=== PATIENT | male | born 1955 | race Caucasian/White ===

== ENCOUNTER 2019-04-24 08:15 | Emergency (ER) | payer OTHER, MEDICAID, SELFPAY ==
[2019-04-24 08:20] VITALS: BP 155/94; PULSE 92; RESP 14; TEMP 36.2; O2SAT 100; BMI 23.6
--- NOTE | 2019-04-24 08:23 | DI.RAD.S_ITS ---
PROCEDURE: XR CHEST 1V INDICATIONS: chest pain TECHNIQUE: One view of the chest was acquired. COMPARISON: [facility], , CHEST 1 VIEW, 08/31/2015, 0:15. FINDINGS: Surgical changes and devices: There are multiple overlying wires. Lungs and pleura: Visualized lungs are clear. No pleural effusions or pneumothorax. Mediastinum: Mediastinal contours appear normal. Heart size is normal. Bones and chest wall: No suspicious bony lesions. Overlying soft tissues appear unremarkable. IMPRESSION: 1. No acute cardiopulmonary disease. Dictated by: Jagjit Agrawal M.D. on 04/24/2019 at 7:52 Approved by: Jagjit Agrawal M.D. on 04/24/2019 at 7:54
--- NOTE | 2019-04-24 08:31 | PC.NURSE ---
pt c/o left chest pain started yesterday, having difficutly moving due to pain, sob of breath. per pt's spouse pt has had a few episodes where the pain is so sudden he grabs his chest and almost drops to his knees.
[2019-04-24 08:38] LABS: Add Manual Diff / Slide Review NO; Basophils Absolute Auto 0 /uL (0-100); Basophils Percent Auto 0.5 % (0-2); Eosinophils Absolute Auto 300 /uL (0-450); Eosinophils Percent Auto 4.4 % (2-4); Hematocrit 37.6 % (41-53); Hemoglobin 12.6 g/dL (13.5-17.5); Lymphocytes Absolute Auto 1700 /uL (1100-4500); Lymphocytes Percent Auto 28.3 % (25-40); Mean Corpuscular HGB Conc 33.5 % (30-36); Mean Corpuscular Hemoglobin 27.3 PG (26-34); Mean Corpuscular Volume 81.5 fL (80-100); Monocytes Absolute Auto 400 /uL (0-900); Monocytes Percent Auto 7.2 % (3-14); Neutrophils Absolute Auto 3600 /uL (1500-7000); Neutrophils Percent Auto 59.6 % (50-75); Platelet Count 243 X10^3/uL (150-400); Red Blood Cell Count 4.61 X10^6/uL (4.5-5.9)
[2019-04-24 08:43] LABS: PTT Partial Thromboplastin Tim 29 SECONDS (26.4-36.2)
[2019-04-24 08:45] LABS: Alanine Aminotransferase 16 IU/L (<50); Albumin 4.1 g/dL (3.5-5.0); Albumin Globulin Ratio 1.5 (1.0-2.8); Alkaline Phosphatase 89 U/L (38-126); Aspartate Aminotransferase 25 IU/L (17-59); Bilirubin Total 0.4 mg/dL (0.2-1.3); Blood Urea Nitrogen 20 mg/dL (9-20); Calcium 9.1 mg/dL (8.4-10.2); Carbon Dioxide 28 mmol/L (22-32); Chloride 103 mmol/L (98-107); Creatine Kinase 80 U/L (55-170); Estimated Glomerular Filt Rate > 60.0 mL/min (>60); Globulin 2.7 g/dL (1.7-4.1); Glucose 96 mg/dL (80-110); HEMOLYSIS < 15 (0-50); Lipase 30 U/L (23-300); Sodium 140 mmol/L (137-145); Total Protein 6.8 g/dL (6.3-8.2)
[2019-04-24 08:57] LABS: Troponin I < 0.012 ng/mL (0.01-0.034)
--- NOTE | 2019-04-24 09:18 | DI.CT.S_ITS ---
PROCEDURE: CT ANGIO CHEST PE PROTOCOL INDICATIONS: chest pain, shortness of breath, smoker TECHNIQUE: After the administration of intravenous contrast, 2 mm thick sections acquired from the pulmonary apices to the posterior costophrenic angles. 3-dimensional maximum intensity projection (MIP) coronal and sagittal reformats were then acquired through the thorax. For radiation dose reduction, the following was used: automated exposure control, adjustment of mA and/or kV according to patient size. COMPARISON: [facility], CR, XR CHEST 1V, 04/24/2019, 8:41. FINDINGS: Image quality: Excellent. Pulmonary arteries: Pulmonary arteries are normal in size, and demonstrate no intraluminal filling defects to suggest central pulmonary embolism. Lungs and pleura: There are clustered small indistinct nodular opacities within the lower lobes, left greater than right. There is associated mild bronchial wall thickening and areas of mucous plugging. Within the medial right upper and middle lobes, and there is also mild bronchial wall thickening with linear areas of scarring likely related to prior infection. There are mild paraseptal emphysematous changes. Findings are compatible with an endobronchial secretion of infection or inflammation. No pleural effusions or pneumothorax. Mediastinum: Heart size is normal, without pericardial effusion. There is a prominent left infrahilar lymph node measuring up to approximately 1.3 cm in short axis. No mediastinal lymphadenopathy by size criteria. Thoracic aorta is normal in caliber and enhancement. Esophagus is normal in caliber, without hiatal hernia. Bones and chest wall: No suspicious bony lesions. Ribs and thoracic spine appear intact throughout. Thyroid gland demonstrates no discrete nodules. No axillary or supraclavicular adenopathy. Abdomen: Visualized upper abdomen demonstrates mild periportal edema. IMPRESSION: 1. No evidence of pulmonary embolism. 2. Bilateral small clustered indistinct nodules with associated mild mucous spleen and bronchial wall thickening. The constellation of findings are consistent with endobronchial distribution of an atypical infection or sequelae of aspiration. 3. Enlarged left infrahilar lymph node. Although the findings may be reactive, given the localized enlargement and history of smoking, a neoplasm cannot be excluded. Recommend a short-term followup CT in 3 months following appropriate therapy to demonstrate resolution if clinically indicated. 4. Mild paraseptal emphysematous changes. Dictated by: Jagjit Agrawal M.D. on 04/24/2019 at 8:57 Approved by: Jagjit Agrawal M.D. on 04/24/2019 at 9:06
--- NOTE | 2019-04-24 09:23 | ED.CHESTPAIN ---
HPI - Chest Pain General Chief Complaint: Chest Pain Stated Complaint: chest pain Time Seen by Provider: 04/24/19 08:43 Source: patient Mode of arrival: Ambulatory Limitations: no limitations History of Present Illness HPI narrative: Patient comes emergency department complaining of chest pain. he states he has been having episodes of the same kind of chest pain on and off for about the last year. Patient denies any nausea vomiting. He states that when the pain comes on, he feels short of breath. He does smoke cigarettes and has had a cough for the last few months, which has been productive of a mild amount of yellow sputum. Patient denies any diaphoresis. He states he was admitted to [facility] some months ago for similar symptoms, at which time he had a cardiac rule out and a stress test. He states the stress test was negative. patient does not see a intelligence clerk. He denies any history of any sort of heart problems and does not have any specific lung diagnoses. He states that all 3 of his brothers have had various types of cancer, including leukemia and some sort of bone cancer. Patient states he has never had cancer. He denies any weight loss. No other complaints at this time. He states that he does not feel too bad laying in bed. He does note that the pain feels worse when he coughs. Related Data Previous Rx's Medication Instructions Recorded azithromycin [Zithromax Z-Rojas] 250 mg PO DAILY 5 Days tab 04/24/19 Allergies Allergy/AdvReac Type Severity Reaction Status Date / Time Penicillins [PENICILLINS] Allergy Mild rash Verified 04/24/19 08:20 Review of Systems Constitutional Constitutional: Denies chills, Denies fatigue, Denies fever(s), Denies frequent falls, Denies lethargy and Denies weakness Eyes Eyes: Denies change in vision, Denies eye discharge, Denies irritation and Denies loss of vision ENT Ears, Nose, Mouth, and Throat: Denies change in voice, Denies dizziness, Denies neck pain, Denies sore throat and Denies throat swelling Cardiovascular Cardiovascular: Reports chest pain, Denies irregular heart rhythm, Denies lightheadedness, Denies palpitations, Reports dyspnea, Denies dyspnea on exertion and Denies orthopnea Respiratory Respiratory: Denies cough, Reports dyspnea, Denies dyspnea on exertion and Denies wheezing Gastrointestinal Gastrointestinal: Denies abdominal pain, Denies change in bowel habits, Denies diarrhea, Denies nausea and Denies vomiting Genitourinary Genitourinary: Denies hematuria, Denies flank pain, Denies urinary incontinence and Denies urinary urgency Musculoskeletal Musculoskeletal: Denies back pain, Denies muscle weakness, Denies neck pain, Denies numbness and Denies tingling Integumentary/Breasts Skin/Breast: Denies pruritus, Denies erythema, Denies rash and Denies wounds Neurologic Neurologic: Denies behavioral changes, Denies confusion, Denies dizziness, Denies frequent falls, Denies loss of vision, Denies numbness, Denies tingling and Denies weakness Psychiatric Psychiatric: Denies anxiety, Denies behavioral changes, Denies confusion, Denies depression, Denies homicidal ideation and Denies suicidal ideation Endocrine Endocrine: Denies fatigue, Denies flushing and Denies palpitations Hematologic/Lymphatic Hematologic/Lymphatic: Denies easy bruising Allergic/Immunologic Allergic/Immunologic: Denies urticaria, Denies throat swelling and Denies wheezing Patient History Medical History Healthy adult (Acute) Social History Smoking Status: Current every day smoker Smoking Status: Current every day smoker Exam Initial Vital Signs Initial Vital Signs: Vital Signs Temperature 97.1 F L 04/24/19 08:20 Pulse Rate 92 H 04/24/19 08:20 Respiratory Rate 14 04/24/19 08:20 Blood Pressure 155/94 H 04/24/19 08:20 Pulse Oximetry 100 04/24/19 08:20 Const General: cooperative and well developed Nutritional Appearance: well nourished Orientation: alert, awake, oriented x3 and not confused [facility] Head: normocephalic and atraumatic Ears: external ears normal Nose: external nose normal and No nasal discharge Face and sinus: face symmetric and No dry mucous membranes Mouth: oral mucosae normal and moist mucous membranes Teeth and gingiva: dentition normal Eyes General: appearance normal, both eyes and all related structures Eyelids: eyelids normal Conjunctivae: conjunctivae normal Sclera: sclerae normal Pupils: PERRL EOM: EOM intact bilaterally Neck Neck: normal visual inspection, trachea midline, No lymphadenopathy, No midline deformity and No JVD Lymphatic: No lymphedema Chest Chest: normal inspection of the chest Resp Effort & Inspection: normal respiratory effort, able to speak in complete sentences, no respiratory distress and no use of accessory muscles Auscultation: clear to auscultation bilaterally, no rales, no rhonchi and no wheezes Cardio Rate: regular rate Rhythm: regular rhythm Heart Sounds: no click, no gallops, no murmurs and no rubs Pulses: normal peripheral pulses GI Inspection: non-distended Palpation: soft, no hepatosplenomegaly, No guarding, No pulsatile mass and No tender Back/Spine/Pelvis Back: No CVA tenderness Cervical Spine: cervical ROM normal and No pain with cervical ROM Thoracic/Lumbar Spine: thoracic and lumbar spine normal to inspection Skin General: no rashes or lesions noted, No jaundice and No petechiae Neuro General: alert, oriented x3, gait normal and no focal motor deficits Speech: speech normal Extrem General: full ROM, no clubbing, cyanosis or edema, no pedal edema and no calf tenderness Psych Appearance: well kempt Mental Status: mental status grossly normal Attitude: cooperative Thought Content: normal and suicidality Judgment: judgment good Course Course Course Narrative: Patient was worked up with labs, EKG, chest x-ray, and CT of the chest. He was given IV fluids and Toradol. The workup was unremarkable for emergent findings. I did discuss with the patient that at this time, there is no evidence of an emergent condition causing his symptoms. He has been started on Zithromax for probable bronchitis. Orders Ordered: Discontinued Medications Sodium Chloride (Normal Saline 0.9%) 1,000 mls @ 1,000 mls/hr IV BOLUS ONE Stop: 04/24/19 10:17 Last Admin: 04/24/19 10:00 Dose: 1,000 mls/hr Documented by: NIKITA Ketorolac Tromethamine (Toradol) 30 mg IV NOW ONE Stop: 04/24/19 09:30 Last Admin: 04/24/19 10:01 Dose: 30 mg Documented by: NIKITA Lorazepam (Ativan) 0.5 mg IV NOW ONE Stop: 04/24/19 09:30 Last Admin: 04/24/19 10:03 Dose: 0.5 mg Documented by: NIKITA Vital Signs Vital signs: Vital Signs - 8 hr 04/24/19 08:20 Temperature 97.1 F L Pulse Rate 92 H Respiratory Rate 14 Blood Pressure 155/94 H Pulse Oximetry 100 MDM - Chest Pain Medical Records Data Attestation: I reviewed the patient's medical records. Lab Data Attestation: I reviewed the patient's lab results. Result diagrams: 04/24/19 08:25 04/24/19 08:25 Labs: Lab Results 04/24/19 04/24/19 04/24/19 Range/Units 08:25 08:25 08:25 WBC 6.0 (4.5-11.0) X10^3/uL RBC 4.61 (4.5-5.9) X10^6/uL Hgb 12.6 L (13.5-17.5) g/dL Hct 37.6 L (41-53) % MCV 81.5 (80-100) fL MCH 27.3 (26-34) PG MCHC 33.5 (30-36) % RDW 14.0 (11.6-14.8) % Plt Count 243 (150-400) X10^3/uL Neut % (Auto) 59.6 (50-75) % Lymph % (Auto) 28.3 (25-40) % [place] % (Auto) 7.2 (3-14) % Eos % (Auto) 4.4 H (2-4) % Baso % (Auto) 0.5 (0-2) % Neut # (Auto) 3600 (0251-1149) /uL Lymph # (Auto) 1700 (9586-9450) /uL [place] # (Auto) 400 (0-900) /uL Eos # (Auto) 300 (0-450) /uL Baso # (Auto) 0 (0-100) /uL PT 11.0 (10.1-12.7) SECONDS INR 1.0 (0.9-1.3) APTT 29 (26.4-36.2) SECONDS Sodium 140 (137-145) mmol/L Potassium 4.0 (3.4-5.1) mmol/L Chloride 103 (98-107) mmol/L Carbon Dioxide 28 (22-32) mmol/L BUN 20 (9-20) mg/dL Creatinine 1.00 (0.66-1.25) mg/dL Estimated GFR > 60.0 (>60) mL/min BUN/Creatinine Ratio 20.0 (6-22) Glucose 96 (80-110) mg/dL Calcium 9.1 (8.4-10.2) mg/dL Total Bilirubin 0.4 (0.2-1.3) mg/dL AST 25 (17-59) IU/L ALT 16 (<50) IU/L Alkaline Phosphatase 89 (38-126) U/L Total Creatine Kinase 80 (55-170) U/L CK-MB (CK-2) TNP CK-MB (CK-2) Rel Index TNP Troponin I < 0.012 (0.01-0.034) ng/mL Total Protein 6.8 (6.3-8.2) g/dL Albumin 4.1 (3.5-5.0) g/dL Globulin 2.7 (1.7-4.1) g/dL Albumin/Globulin Ratio 1.5 (1.0-2.8) Lipase 30 (23-300) U/L Imaging Data CT scan - chest: Radiologist's impression: PROCEDURE: CT ANGIO CHEST PE PROTOCOL INDICATIONS: chest pain, shortness of breath, smoker TECHNIQUE: After the administration of intravenous contrast, 2 mm thick sections acquired from the pulmonary apices to the posterior costophrenic angles. 3-dimensional maximum intensity projection (MIP) coronal and sagittal reformats were then acquired through the thorax. For radiation dose reduction, the following was used: automated exposure control, adjustment of mA and/or kV according to patient size. COMPARISON: [facility], CR, XR CHEST 1V, 04/24/2019, 8:41. FINDINGS: Image quality: Excellent. Pulmonary arteries: Pulmonary arteries are normal in size, and demonstrate no intraluminal filling defects to suggest central pulmonary embolism. Lungs and pleura: There are clustered small indistinct nodular opacities within the lower lobes, left greater than right. There is associated mild bronchial wall thickening and areas of mucous plugging. Within the medial right upper and middle lobes, and there is also mild bronchial wall thickening with linear areas of scarring likely related to prior infection. There are mild paraseptal emphysematous changes. Findings are compatible with an endobronchial secretion of infection or inflammation. No pleural effusions or pneumothorax. Mediastinum: Heart size is normal, without pericardial effusion. There is a prominent left infrahilar lymph node measuring up to approximately 1.3 cm in short axis. No mediastinal lymphadenopathy by size criteria. Thoracic aorta is normal in caliber and enhancement. Esophagus is normal in caliber, without hiatal hernia. Bones and chest wall: No suspicious bony lesions. Ribs and thoracic spine appear intact throughout. Thyroid gland demonstrates no discrete nodules. No axillary or supraclavicular adenopathy. Abdomen: Visualized upper abdomen demonstrates mild periportal edema. IMPRESSION: 1. No evidence of pulmonary embolism. 2. Bilateral small clustered indistinct nodules with associated mild mucous spleen and bronchial wall thickening. The constellation of findings are consistent with endobronchial distribution of an atypical infection or sequelae of aspiration. 3. Enlarged left infrahilar lymph node. Although the findings may be reactive, given the localized enlargement and history of smoking, a neoplasm cannot be excluded. Recommend a short-term followup CT in 3 months following appropriate therapy to demonstrate resolution if clinically indicated. 4. Mild paraseptal emphysematous changes. Dictated by: Jagjit Agrawal M.D. on 04/24/2019 at 8:57 Approved by: Jagjit Agrawal M.D. on 04/24/2019 at 9:06 Chest x-ray: Radiologist's impression: PROCEDURE: XR CHEST 1V INDICATIONS: chest pain TECHNIQUE: One view of the chest was acquired. COMPARISON: [facility], , CHEST 1 VIEW, 08/31/2015, 0:15. FINDINGS: Surgical changes and devices: There are multiple overlying wires. Lungs and pleura: Visualized lungs are clear. No pleural effusions or pneumothorax. Mediastinum: Mediastinal contours appear normal. Heart size is normal. Bones and chest wall: No suspicious bony lesions. Overlying soft tissues appear unremarkable. IMPRESSION: 1. No acute cardiopulmonary disease. Dictated by: Jagjit Agrawal M.D. on 04/24/2019 at 7:52 Approved by: Jagjit Agrawal M.D. on 04/24/2019 at 7:54 ECG Data Attestation: I personally reviewed and interpreted this ECG as follows: (See below) Interpretation: Twelve lead EKG performed April 2019 at 8:22 a.m., as follows: Regular ventricular rhythm with a rate of 97 beats per minute VT interval 133 milliseconds QRS duration 102 millisecond QTC interval [address] T wave changes Interpretation: Normal sinus rhythm; nonspecific T-wave abnormality; no signs of acute ischemia; borderline EKG as interpreted by ED MD. Discharge Plan Departure Patient Disposition: Home Clinical Impression: Bronchitis Chest pain Qualifiers: Chest pain type: intercostal pain Qualified Code(s): R07.82 - Intercostal pain Discharge Date/Time: 04/24/19 11:35 Instructions: DI for Acute Bronchitis, DI for Chest Pain Activity Restrictions/Additional Instructions: Your labs, EKG, chest x-ray, and CT scan looks fairly good. There is evidence of bronchitis on your CT, and you will be treated with antibiotics for this. The fact that you have had a negative stress test in the last year is a very good sign in terms of your heart. Please follow up with your primary care physician. Prescriptions: New azithromycin [Zithromax Z-Rojas] 250 mg tablet 250 mg PO DAILY 5 Days RF: 0
[2019-04-24] MEDS: SODIUM CHLORIDE 0.9% 1,000 ML 1000 ML IV (10:00)
[2019-04-24] MEDS: KETOROLAC 60 MG/2 ML VIAL 30 MG IV (10:01)
[2019-04-24] MEDS: LORazepam 2 MG/ML INJ 0.5 MG IV (10:03)
[2019-04-24 10:19] VITALS: BP 140/78; PULSE 78; RESP 15; O2SAT 100
--- NOTE | 2019-05-21 15:45 | PC.NURSE ---
late entry, normal saline 1000 cc infused at 1015 without incident.
== END 2019-04-24 11:35 | disposition home or self-care (01) ==
PROVIDERS: Emergency Provider Emergency Medicine
DX: J40 Bronchitis, not specified as acute or chronic (principal); R07.82 Intercostal pain; R07.9 Chest pain, unspecified
CPT/HCPCS: 36415; 71045; 71275; 80053; 82550; 83690; 84484; 85025; 85610; 85730; 93005; 96374; 96375; 99283; 99285; J1885; J2060